=== PATIENT | female | born 1935 | race Caucasian/White ===

== ENCOUNTER → 2017-12-16 | Outpatient (CLI) | payer OTHER ==
[~2017-12-16] MED LIST: ACETAMINOPHEN-1 EAC1 PO; AMLODIPINE BESY10 MG PO; APAP650 PO; B12INJ PO; BENADRYL25 MG PO; CARDIZEM CD180 MG PO; COUMADIN 2.5MG2.5 M1 PO; DAILY VALUE1 EACH PO; DIOVAN HCT 1601 EACH PO; DIOVAN320 MG PO; KLOR-CON 1010 MEQ PO; LAMISIL250 MG PO; LEVOTHYROXIN0.112 M1 PO; LEVOTHYROXIN0.175 MG PO; LEVOTHYROXINE0.2 M1 PO; MULTAQ400 MG PO; MULTIVITAMINS PO; OMEPRAZOLE20 MG PO; PERCOCET 5-3251 EACH PO; POTASSIUM20 PO; SOTALOL 120 MG120 MG PO; TIKOSYN.125 PO; TIKOSYN0.25 MG PO; TOPROL XL100 MG PO; TOPROL XL200 MG PO; TRAMADOL 50 MG50 MG PO; TYLENOL325 MG PO; VITAMIN D1000 UNI1 PO
== END ==
LOC: RAD 13:49
DX: I51.7 Cardiomegaly (principal)

== ENCOUNTER → 2018-01-11 | Outpatient (CLI) | payer OTHER | LOC: CAT 05:59 | DX: I51.7 Cardiomegaly (principal); R59.0 Localized enlarged lymph nodes ==

== ENCOUNTER → 2018-01-26 | Outpatient (CLI) | payer OTHER ==
--- NOTE | ~2018-01-26 | 2DMMODE ---
[facility] [place] [place] [address] 2 D/M-MODE ECHOCARDIOGRAM Name: NYA ABEL Room #: REG [facility]#: [id number] Admission: 01/26/18 Attend Phys: Holden Cadet, Discharge: Date of : 35 Date of Service: 01/26/18 1546 Report #: [id number] THIS REPORT FOR: //name// APPROVED REPORT Study performed: 01/26/2018 12:54:35 EXAM: Comprehensive 2D, Doppler, and color-flow Echocardiogram Patient Location: Out-Patient Status: routine BSA: 1.76 HR: 60 bpm BP: 140/71 mmHg Rhythm: NSR Other Information Study Quality: Adequate Indications Pulmonary hypertension. Hx: Afib 2D Dimensions RVDd: 36.31 mm LVEF(%): 50.31 (>50%) IVSd: 10.42 (7-11mm) LVOT Diam: 20.15 (18-24mm) LVDd: 45.41 mm PWd: 8.45 (7-11mm) LVDs: 33.85 (25-40mm) Aortic Root: 32.58 mm Slater's LVEF: 50.31 % Volumes Left Atrial Volume (Systole) Single Plane 4CH: 96.91 mL Single Plane 2CH: 106.61 mL LA ESV Index: 61.00 mL/m2 Aortic Valve AoV Peak Hank.: 1.69 m/s AO Peak Gr.: 11.80 mmHg LVOT Max P.37 mmHg LVOT Max V: 1.05 m/s ELMA Vmax: 1.97 cm2 Mitral Valve E/A Ratio: 5.0 MV Decel. Time: 173.53 ms [facility] [place] [address] 2 D/M-MODE ECHOCARDIOGRAM Name: NYA ABEL Room #: [facility]#: [id number] Admission: 01/26/18 Attend Phys: Holden Cadet, Discharge: Date of : 35 Date of Service: 01/26/18 1546 Report #: [id number] MV E Max Hank.: 0.95 m/s MV A Hank.: 0.19 m/s MV PHT: 50.32 ms IVRT: 50.75 ms Pulmonary Valve PV Peak Hank.: 0.74 m/s PV Peak Gr.: 2.20 mmHg Pulmonary Vein P Vein S: 0.40 m/s P Vein A: 0.22 m/s P Vein D: 0.65 m/s P Vein A Dur.: 120.0 msec P Vein S/D Ratio: 0.62 Tricuspid Valve TR Peak Hank.: 3.35 m/s RAP Estimate: 5.00 mmHg TR Peak Gr.: 44.86 mmHg PA Pressure: 50.00 mmHg Left Ventricle The left ventricle is normal size. There is normal LV segmental wall motion. Mild basal septal hypertrophy is present. Left ventricular systolic function is normal. LVEF is 55-60%. Severe diastolic dysfunction is present (restrictive filling). Right Ventricle The right ventricle is normal size. The right ventricular systolic function is normal. Atria Left atrium is severely dilated. Right atrium is mildly dilated. Aortic Valve The aortic valve is moderately sclerotic, trileaflet Trace aortic regurgitation. There is no aortic valvular stenosis. Mitral Valve Mild mitral annular calcification. Mild to moderate mitral regurgitation. Tricuspid Valve The tricuspid valve is normal in structure. Moderate tricuspid regurgitation. Estimated PAP is 50-55mmHg. Pulmonic Valve The pulmonary valve is normal in structure. Trace pulmonic [address] [address] 2 D/M-MODE ECHOCARDIOGRAM Name: NYA ABEL [id number] Admission: 01/26/18 Attend Phys: Holden Cadet, Discharge: Date of : 35 Date of Service: 01/26/18 1546 Report #: [id number] regurgitation. Great Vessels Ascending aorta is not well visualized. IVC is borderline dilated and collapses >50% with inspiration. Pericardium There is no pericardial effusion. <Conclusion> Left ventricular systolic function is normal. There is normal LV segmental wall motion. LVEF 55-60%. Severe diastolic dysfunction Left atrium is severely dilated. The aortic valve is moderately sclerotic, trileaflet. Trace aortic regurgitation, no stenosis. Mild mitral annular calcification. Mild to moderate mitral regurgitation. Moderate tricuspid regurgitation. Estimated pulmonary artery pressure of 50-55mmHg. There is no pericardial effusion. <ELECTRONICALLY SIGNED> By: Desmond Lara MD, [facility] 01/26/18 1546 1546 1546 Desmond Lara MD, FAC /INF
== END ==
LOC: CV 10:23
DX: I08.1 Rheumatic disorders of both mitral and tricuspid valves (principal); R06.00 Dyspnea, unspecified; I48.91 Unspecified atrial fibrillation; I70.8 Atherosclerosis of other arteries

== ENCOUNTER → 2018-07-08 | Outpatient (CLI) | payer OTHER | LOC: NUC 10:38 | DX: M85.89 Other specified disorders of bone density and structure, multiple sites (principal); M81.0 Age-related osteoporosis without current pathological fracture; Z78.0 Asymptomatic menopausal state ==

== ENCOUNTER → 2019-10-27 | Outpatient (CLI) | payer OTHER | LOC: SJCVCIMAG 10-20 14:11 | DX: I08.3 Combined rheumatic disorders of mitral, aortic and tricuspid valves (principal); R94.31 Abnormal electrocardiogram [ECG] [EKG]; I48.0 Paroxysmal atrial fibrillation; I11.0 Hypertensive heart disease with heart failure; I50.32 Chronic diastolic (congestive) heart failure; G47.33 Obstructive sleep apnea (adult) (pediatric); E78.5 Hyperlipidemia, unspecified; E03.9 Hypothyroidism, unspecified; Z90.49 Acquired absence of other specified parts of digestive tract; Z90.710 Acquired absence of both cervix and uterus; Z96.652 Presence of left artificial knee joint; Z96.611 Presence of right artificial shoulder joint; Z96.612 Presence of left artificial shoulder joint; Z79.84 Long term (current) use of oral hypoglycemic drugs; Z79.01 Long term (current) use of anticoagulants; Z79.82 Long term (current) use of aspirin; Z79.891 Long term (current) use of opiate analgesic; Z87.891 Personal history of nicotine dependence ==

== ENCOUNTER 2019-11-21 17:43 | Inpatient (IN) | payer OTHER ==
[~2019-11-21] VITALS: Ht 149.9 cm; Wt 81.4 kg
[2019-11-21 17:45] VITALS: BP 221/110
--- NOTE | 2019-11-21 17:46 | NUR ---
CODE STROKE ACTIVATED
[2019-11-21 18:23] LABS: ABSOLUTE NEUTROPHILS 4.5 thou/uL (1.4-8.2); EOSINOPHILS 2.3 % (0.0-3.0); HEMATOCRIT 45.6 % (37.0-47.0); HEMOGLOBIN 14.9 gm/dL (12.0-15.0); LYMPHOCYTES 32.8 % (24.0-44.0); MCH 29.7 pg (26.0-34.0); MCHC 32.7 g/dL (28.0-37.0); MCV 90.9 fL (80.0-100.0); MONOCYTES 8.3 % (1.0-8.0); PLATELET COUNT 216 thou/uL (150-400); POLYS 55.6 % (36.0-66.0); RBC 5.02 mil/uL (4.20-5.00); RDW 14.9 % (10.5-14.5)
[2019-11-21] MEDS ORDERED: TOPROL XL50 MG PO (18:31)
[2019-11-21 18:32] LABS: URINE BILIRUBIN NEGATIVE (Negative); URINE BLOOD TRACE (Negative); URINE CLARITY CLEAR; URINE COLOR YELLOW; URINE GLUCOSE-RANDOM* NEGATIVE (Negative); URINE KETONES NEGATIVE (Negative); URINE LEUKOCYTES-REFLEX NEGATIVE (Negative); URINE NITRITE-REFLEX NEGATIVE (Negative); URINE PROTEIN (DIPSTICK) TRACE (Negative); URINE SPECIFIC GRAVITY 1.015 (1.005-1.035); URINE UROBILINOGEN 0.2 E.U./dl (0.2-1.0)
[2019-11-21 18:33] LABS: POTASSIUM 4.4 mmol/L (3.5-5.1)
[2019-11-21] MEDS ORDERED: AVAPRO300 MG PO (18:34)
[2019-11-21] MEDS ORDERED: LEVO-T100 MCG PO (18:34)
[2019-11-21] MEDS ORDERED: CALCITONIN-SAL3.7 ML NASAL (18:34)
[2019-11-21 18:36] LABS: PROTIME 10.6 Seconds (9.3-11.4)
[2019-11-21 20:21] VITALS: BP 196/76
[2019-11-21 20:42] LABS: CHOLESTEROL 214 mg/dL (<200); HDL CHOLESTEROL 45 mg/dL (>40); LDL CHOLESTEROL 141 mg/dL (<100); TC:HDL 4.8 Ratio (Not establshd); TRIGLYCERIDE 144 mg/dL (<150); VLDL 29 mg/dL (<40)
[2019-11-21 20:51] LABS: SERUM ASSESSMENT Clear
[2019-11-21 21:00] VITALS: BP 187/98
[2019-11-22 00:30] VITALS: BP 181/90
[2019-11-22 05:25] VITALS: BP 109/43
[2019-11-22 06:12] LABS: GLYCOHEMOGLOBIN (HGB A1C) 5.8 % (4.8-5.6)
[2019-11-22 07:32] LABS: CALCIUM 8.3 mg/dL (8.5-10.1); CREATININE 0.9 mg/dL (0.6-1.0); POTASSIUM 3.9 mmol/L (3.5-5.1)
[2019-11-22 07:42] VITALS: BP 152/78
--- NOTE | 2019-11-22 07:48 | NUR ---
PT ARRIVED FROM ER VIA CART, PLACED IN ROOM 359. ADMISSION ASSESSMENTS COMPLETED. PT MAKING SLOW PROGRESS TOWARDS GOALS. NIH SCORE 2 THROUGHOUT THE NIGHT. PT HAS DIFFICULTY SAYING WORDS, SPEAKS IN WORD SALAD MANNER AT TIMES AND HAS BEEN UNABLE TO VERBALIZE THE WORD TO IDENTIFY ITEMS. PT ALSO HAD DIFFICULTY STATING THE SENTENCES THAT COME WITH THE NIH PACKET. ON ONE OCCASION SHE JUST STATED A SERIES OF NUMBERS SHE READ THE SENTENCES. STABLE ON HER FEET AND UP WITH SBA.
--- NOTE | 2019-11-22 08:09 | EKG ---
[facility] [place] [address] ELECTROCARDIOGRAM REPORT Name: NYA ABEL Room #: 359-P ADM IN M.R.#: [id number] Admission: 11/21/19 Attend Phys: Chau De La Cruz MD Discharge: Date of : 35 Report #: [id number] THIS REPORT FOR: cc: Hermilo Foreman Steven F. DO Couchonnal, Luis F. MD ~ THIS REPORT FOR: //name// [facility] ED Test Date: 2019-11-21 Test Time: 18:05:57 Pat Name: NYA ABEL Department: Room: 359 Gender: F Plate Hanger: [facility] : 1935 Requested By: Maria C Smith Order Number: [id number] MD: Will Bhagat Measurements Intervals [place] Rate: 98 P: ME: QRS: 20 QRSD: 101 T: -18 QT: 390 QTc: 499 Interpretive Statements Atrial flutter Consider anterior infarct Compared to ECG 05/28/2014 03:04:47 Myocardial infarct finding now present Atrial fibrillation no longer present Electronically Signed On 11-22-2019 8:08:38 FIBRE OPTIC CABLE SPLICER by Will Bhagat [email or web address] <ELECTRONICALLY SIGNED> By: Will Bhagat MD 11/22/19 0808 04 04 Will Bhagat MD /EPI
[2019-11-22 11:13] VITALS: BP 143/77
[2019-11-22 15:48] VITALS: BP 149/69
--- NOTE | 2019-11-22 16:13 | NUR ---
INITIAL ASSESSMENT: SW reviewed chart and spoke with nursing and attending physician. Pt was admitted from home due to possible CVA. Therapy and 5N consult ordered. Pt to have repeat MRI tomorrow per neuro. Per chart, pt lives at home. 1 step to enter the home. No steps inside. Pt has a cane. Pt's PCP is Dr. Foreman. [facility]N is following for possible admission to inpt acute rehab. Pt will need insurance authorization for post acute placement. [facility] is following to assist as needed with discharge planning.
[2019-11-22 19:16] VITALS: BP 131/66
[2019-11-23] VITALS (7 sets, daily range): BP systolic 139–190; BP diastolic 63–88
--- NOTE | 2019-11-23 08:33 | EKG ---
[facility] [place] [address] [place] [address] ELECTROCARDIOGRAM REPORT Name: NYA ABEL Room #: 359-P ADM IN M.R.#: [id number] Admission: 11/21/19 Attend Phys: Chau De La Cruz MD Discharge: Date of : 35 Report #: [id number] THIS REPORT FOR: cc: Hermilo Foreman Steven F. DO Couchonnal, Luis F. MD ~ THIS REPORT FOR: //name// [facility] Test Date: 2019-11-23 Test Time: 07:57:33 Pat Name: NYA ABEL Department: Room: 359 P Gender: F Tax Examiner: Thelma PRITCHETT : 1935 Requested By: Desmond Lara Order Number: [id number] MD: Will Bhagat Measurements Intervals [place] Rate: 60 P: 59 NE: 190 QRS: 24 QRSD: 88 T: 6 QT: 528 QTc: 528 Interpretive Statements Sinus rhythm Inferior infarct, old Prolonged QT interval Compared to ECG 11/21/2019 18:05:57 Prolonged QT interval now present Atrial flutter no longer present Myocardial infarct finding still present Electronically Signed On 11-23-2019 8:32:05 SHIFT COORDINATOR by Will Bhagat [email or web address] <ELECTRONICALLY SIGNED> By: Will Bhagat MD 11/23/19 0832 6 6 Will Bhagat MD /EPI
--- NOTE | 2019-11-23 09:30 | NUR ---
PT MAKING PROGRESS TOWARDS GOALS. NIH (BRIEF) REPORTEDLY ZERO PER DAY RN. ALL NIH SCORES WERE ZERO THROUGHOUT THE NIGHT.
--- NOTE | 2019-11-23 13:59 | NUR ---
Possible dc home later today pending MRI results and clearance from neuro. Pt's symptoms are resolving and pt and dtr report that she is close to her baseline. 5N eval canceled. ST has evaluated and recommending ST HH [place] d/t memory and cog deficits. Pt scored 17/30 on their mini mental testing. Pt and dtr agreeable. ST also recommended no driving. Pt and dtr acknowleging this recommendation. [facility]/medic alert services discussed along with options for hh f/u. They denied preference as long as the provider can take her ins. Referral called and faxed to [facility] as they are in network. They can accept the pt for HH services and will need orders faxed at [place].
[2019-11-23] MEDS ORDERED: CLOPIDOGREL75 MG PO (16:49)
[2019-11-23] MEDS ORDERED: CLONIDINE HCL0.2 M2 PO (16:49)
[2019-11-23] MEDS ORDERED: ADULT LOW DOSE81 MG PO (16:49)
[2019-11-23] MEDS ORDERED: LIPITOR 20 MG T20 M1 PO (16:49)
--- NOTE | 2019-11-23 19:59 | NUR ---
PATIENT COULD HAVE BEEN DISHCARGED TODAY BUT CAROTID DOPPLER RESULTS CAME IN LATE. SHE WILL BE DISCHARGED IN THE AM. STROKE SYMPTOMS HAVE MOSTLY RESOLVED.
--- NOTE | 2019-11-24 03:22 | NUR ---
aware of possible discharge today. denies pain. dtr at bedside. resting quietly through the night. no concerns voiced.
[2019-11-24 03:50] VITALS: BP 132/82
[2019-11-24 07:51] VITALS: BP 143/70
--- NOTE | 2019-11-24 15:46 | NUR ---
SW reviewed chart and spoke with nursing and attending physician. Pt was not discharged last evening as anticipated. Pt went into a-fib with RVR. No discharge today. Discharge home with [facility] is anticipated for tomorrow. [facility] is following to assist as needed with discharge planning.
[2019-11-24 16:42] VITALS: BP 139/64
--- NOTE | 2019-11-24 17:06 | NUR ---
PT HEART RATE BETTER CONTROLLED THROUGHOUT SHIFT AFTER IV LOPRESSOR THIS MORNING. PT STILL IN AFIB BUT RATE CONTROLLED. 60S-80S BPM. EVEN WITH WALKING WITH PT AROUND UNIT THERAPY.
[2019-11-24 19:33] VITALS: BP 149/76
[2019-11-25 04:45] VITALS: BP 154/112
--- NOTE | 2019-11-25 05:44 | NUR ---
heart rate controlled tonight, as low as 48, mostly in the 60's to 70's. dtr stays at bedside. denies pain, on the cont. on pulse ox. she has a few questions about her medications last night, then rested well for the night.
[2019-11-25 08:13] VITALS: BP 158/89
[2019-11-25 11:33] VITALS: BP 139/73
--- NOTE | 2019-11-25 14:44 | NUR ---
PATIENT DISCHARGED AT THIS TIME TO HOME. SHE LEFT THE UNIT WITH DAUGHTER. SHE IS ALERT ORIENTED X4. DOES NOT SEEM TO BE IN PAIN. RESPIRATONS ARE NON LABORED.
--- NOTE | 2019-11-25 16:38 | NUR ---
DISCHARGE NOTE: SW reviewed chart and spoke with nursing and attending physician. Pt is medically stable for discharge home today with HH services. Discharge orders/summary faxed to [facility]. Contact info for HH placed in pt's discharge summary. Pt's family to provide transportation home. No additional SW needs identified at this time, but is available to assist should needs arise.
== END 2019-11-25 15:08 | disposition home health service (06) | DRG 69 ==
LOC: ER 17:43 → 3W 19:38 → EROBS 19:38 → 3W 20:24 → ENTRNSPT 11-25 14:31 → EDTRNSPTSTS 11-25 14:33 → 3W 11-25 15:08
PROVIDERS: Emergency Medicine; Nurse Practitioner Family; ADMIT Internal Medicine
PROC: 5A09357 Assistance with Respiratory Ventilation, Less than 24 Consecutive Hours, Continuous Positive Airway Pressure (ICD-10-PCS; principal; 2019-11-25)
DX: G45.9 Transient cerebral ischemic attack, unspecified (principal); I48.92 Unspecified atrial flutter; I50.32 Chronic diastolic (congestive) heart failure; R47.01 Aphasia; I48.0 Paroxysmal atrial fibrillation; Z96.653 Presence of artificial knee joint, bilateral; M19.90 Unspecified osteoarthritis, unspecified site; Z96.612 Presence of left artificial shoulder joint; E03.9 Hypothyroidism, unspecified; M85.80 Other specified disorders of bone density and structure, unspecified site; G47.33 Obstructive sleep apnea (adult) (pediatric); I11.0 Hypertensive heart disease with heart failure; G47.00 Insomnia, unspecified; Z79.01 Long term (current) use of anticoagulants; Z90.710 Acquired absence of both cervix and uterus; Z90.49 Acquired absence of other specified parts of digestive tract; Z88.6 Allergy status to analgesic agent; Z88.2 Allergy status to sulfonamides; Z88.8 Allergy status to other drugs, medicaments and biological substances; Z87.891 Personal history of nicotine dependence; Z79.82 Long term (current) use of aspirin; Z79.899 Other long term (current) drug therapy
CPT/HCPCS: 10879

== ENCOUNTER → 2020-04-26 | Outpatient (CLI) | payer OTHER ==
[~2020-04-26] MED LIST changes: +ADULT LOW DOSE81 MG PO; +AVAPRO300 MG PO; +CALCITONIN-SAL3.7 ML NASAL; +CLONIDINE HCL0.2 M2 PO; +CLOPIDOGREL75 MG PO; +LEVO-T100 MCG PO; +LIPITOR 20 MG T20 M1 PO; +TOPROL XL50 MG PO
== END ==
LOC: SJCVC 13:10
PROVIDERS: ATTEND Internal Medicine
DX: I48.0 Paroxysmal atrial fibrillation (principal); I11.0 Hypertensive heart disease with heart failure; I50.32 Chronic diastolic (congestive) heart failure; E78.5 Hyperlipidemia, unspecified; I95.1 Orthostatic hypotension; G47.33 Obstructive sleep apnea (adult) (pediatric); E03.9 Hypothyroidism, unspecified; Z86.73 Personal history of transient ischemic attack (TIA), and cerebral infarction without residual deficits; Z79.899 Other long term (current) drug therapy; Z82.49 Family history of ischemic heart disease and other diseases of the circulatory system; Z87.891 Personal history of nicotine dependence

== ENCOUNTER → 2020-06-25 | Outpatient (CLI) | payer OTHER | LOC: SJCVC 14:50 | PROVIDERS: ATTEND Internal Medicine Cardiovascular Disease | DX: I48.21 Permanent atrial fibrillation (principal); R94.31 Abnormal electrocardiogram [ECG] [EKG]; I13.0 Hypertensive heart and chronic kidney disease with heart failure and stage 1 through stage 4 chronic kidney disease, or unspecified chronic kidney disease; I50.32 Chronic diastolic (congestive) heart failure; N18.3 Chronic kidney disease, stage 3 (moderate); G47.33 Obstructive sleep apnea (adult) (pediatric); Z79.899 Other long term (current) drug therapy; Z86.73 Personal history of transient ischemic attack (TIA), and cerebral infarction without residual deficits; Z87.891 Personal history of nicotine dependence ==

== ENCOUNTER → 2020-12-25 | Outpatient (CLI) | payer OTHER | LOC: SJCVC 13:03 | PROVIDERS: ATTEND Internal Medicine | DX: R94.31 Abnormal electrocardiogram [ECG] [EKG] (principal); I45.10 Unspecified right bundle-branch block; I48.92 Unspecified atrial flutter; I13.0 Hypertensive heart and chronic kidney disease with heart failure and stage 1 through stage 4 chronic kidney disease, or unspecified chronic kidney disease; I50.32 Chronic diastolic (congestive) heart failure; N18.30 Chronic kidney disease, stage 3 unspecified; E78.5 Hyperlipidemia, unspecified; G47.33 Obstructive sleep apnea (adult) (pediatric); I62.9 Nontraumatic intracranial hemorrhage, unspecified; I48.91 Unspecified atrial fibrillation; I25.10 Atherosclerotic heart disease of native coronary artery without angina pectoris; E03.9 Hypothyroidism, unspecified; Z90.49 Acquired absence of other specified parts of digestive tract; Z98.890 Other specified postprocedural states; Z90.710 Acquired absence of both cervix and uterus; Z88.8 Allergy status to other drugs, medicaments and biological substances; Z79.82 Long term (current) use of aspirin; Z79.899 Other long term (current) drug therapy; Z87.891 Personal history of nicotine dependence; Z86.73 Personal history of transient ischemic attack (TIA), and cerebral infarction without residual deficits; Z82.49 Family history of ischemic heart disease and other diseases of the circulatory system ==

== ENCOUNTER → 2021-05-13 | Outpatient (CLI) | payer OTHER ==
--- NOTE | 2021-05-23 21:56 | SLE ---
[facility] [place] [address] POLYSOMNOGRAPHY STUDY Name: NYA ABEL Room #: REG [facility]#: [id number] Admission: 05/13/21 Attend Phys: Servando Holly MD Discharge: Date of : 35 Report #: [id number] THIS REPORT FOR: cc: Hermilo Foreman Steven F. DO Khan, Aman U. MD ~ cc: Dr. Servando Holly DATE OF SERVICE: 05/13/2021 SLEEP STUDY ATTENDING PHYSICIAN: Dr. Servando Holly. The patient is 85 years old who weighs 180 pounds with a BMI of 35.7. The patient's Lawn score was 8. The patient had an initial diagnosis of moderate GAIL. The patient has been on CPAP. The patient's recent download data showed an AHI of 17 per hour on the current CPAP settings. The patient also had increased somnolence. She also has developed atrial fibrillation. BiPAP titration study was performed at [facility]. During the night study, the patient spent 504 minutes in bed and slept for 268 minutes with a low sleep efficiency of 53%. Sleep latency was 35 minutes with a REM latency of 271 minutes. Sleep architecture showed normal stage I sleep, increased stage II sleep, normal slow wave and reduced REM sleep, which was 12% of total sleep time. EKG monitoring revealed an average heart rate of 57 beats per minute. It was atrial fibrillation with a maximum heart rate of 81 beats per minute. PLMS were seen at index of 45 per hour and 4 per hour caused EEG arousals. The patient was started on BiPAP at a pressure of 8/4. The pressure was gradually increased up to 16/8. The patient had a few central apneas, but also was noted to have hypopneas at a lower pressure. The patient was then switched to BiPAP at 16/8 with a backup rate of 12 and at the final pressure of 16/9 with a backup rate of 12. The patient slept for 96 minutes. The patient had supine as well as REM sleep. The patient's AHI was still 24.9 per hour and oxygen saturations remained above 90%. The patient had no central apnea at this pressure, no obstructive apnea or mixed apneas, but 29 hypopneas. Optimal BiPAP pressure was not achieved. Back up rate is not required with BIPAP as there were no enough central apneas on the night of study. IMPRESSION: 1. Sleep apnea diagnosed by previous sleep study. [address] [address] POLYSOMNOGRAPHY STUDY Name: ADRIÁNDANIELLEAbdulkadirNYA Henry [facility] [id number] Admission: 05/13/21 Attend Phys: Servando Holly MD Discharge: Date of : 35 Report #: [id number] 2. Moderate PLMS at an index of 45 per hour and 4 per hour caused EEG arousals. 3. Abnormal EKG consistent with atrial fibrillation and occasional PVCs. 4. Sleep maintenance insomnia. RECOMMENDATIONS: 1. Optimum BiPAP pressure was not achieved on the night of the study. I would recommend that the patient should be placed on auto BiPAP with a maximum IPAP of 22 and a minimum EPAP of 16 with pressure support of 4. The patient should have a download data in the next 4-6 weeks to assess compliance as well as to assess the efficacy of current AutoPAP settings. 2. The patient should have a followup with Cardiology regarding atrial fibrillation. 3. Weight loss to the ideal body weight is recommended. 4. Avoid SECURITY SHIFT SUPERVISOR depressants. 5. PLMS does not need to be treated unless the patient has symptoms of restless legs during the day. 6. Cautioned regarding driving until the patient's hypersomnia is resolved. 7. The patient also had sleep maintenance insomnia. If it persists despite effective use of BiPAP, then it should be further evaluated and treated according to the etiology. <ELECTRONICALLY SIGNED> By: Mook Hankins MD 05/23/21 2156 1231 [id number] Mook Hankins MD /nt
== END ==
LOC: SLEEPLAB 18:42
PROVIDERS: ATTEND Internal Medicine Sleep Medicine
DX: G47.33 Obstructive sleep apnea (adult) (pediatric) (principal)

== ENCOUNTER → 2021-06-04 | Outpatient (CLI) | payer OTHER | LOC: MRI 10:55 | PROVIDERS: ATTEND Neuromusculoskeletal Medicine & OMM | DX: M47.812 Spondylosis without myelopathy or radiculopathy, cervical region (principal); M50.321 Other cervical disc degeneration at C4-C5 level; R51.9 Headache, unspecified; M48.02 Spinal stenosis, cervical region ==

== ENCOUNTER → 2021-06-27 | Outpatient (CLI) | payer OTHER | LOC: SJCVC 13:19 | PROVIDERS: ATTEND Internal Medicine | DX: R94.31 Abnormal electrocardiogram [ECG] [EKG] (principal); I13.0 Hypertensive heart and chronic kidney disease with heart failure and stage 1 through stage 4 chronic kidney disease, or unspecified chronic kidney disease; N18.30 Chronic kidney disease, stage 3 unspecified; I50.32 Chronic diastolic (congestive) heart failure; I48.21 Permanent atrial fibrillation; E78.5 Hyperlipidemia, unspecified; G47.33 Obstructive sleep apnea (adult) (pediatric); I62.9 Nontraumatic intracranial hemorrhage, unspecified; Z86.73 Personal history of transient ischemic attack (TIA), and cerebral infarction without residual deficits; I25.10 Atherosclerotic heart disease of native coronary artery without angina pectoris; E03.9 Hypothyroidism, unspecified; Z82.49 Family history of ischemic heart disease and other diseases of the circulatory system; Z79.899 Other long term (current) drug therapy; Z88.2 Allergy status to sulfonamides; Z88.8 Allergy status to other drugs, medicaments and biological substances; Z72.89 Other problems related to lifestyle; Z87.891 Personal history of nicotine dependence ==